=== PATIENT | female | born 1940 | race Caucasian/White ===

== ENCOUNTER 2018-05-23 02:14 | Inpatient (IN) | payer MEDICARE, OTHER ==
--- NOTE | 2018-05-23 02:26 | EDM.PDOC ---
ED HPI GENERAL MEDICAL PROBLEM - General Chief Complaint: General Stated Complaint: AMBULANCE Time Seen by Provider: 05/23/18 02:21 Source of Information: Reports: EMS - History of Present Illness INITIAL COMMENTS - FREE TEXT/NARRATIVE: EMS called to pt with weakness cough sob past few days. pt answers slowly. EMS states pt's home has wood stove and unsure if there is monoxide poisoning. spouse at scene seems ok as he was the one who called EMS. - Related Data Allergies Allergy/AdvReac Type Severity Reaction Status Date / Time No Known Allergies Allergy Verified 05/23/18 02:22 Home Meds: Home Meds Levothyroxine 125 mcg PO DAILY 12/20/15 [History] PARoxetine [Paxil] 10 mg PO DAILY 12/20/15 [History] atorvaSTATin [Lipitor] 10 mg PO DAILY 12/20/15 [History] tiZANidine HCl [Tizanidine HCl] 2 mg PO TID PRN 12/20/15 [History] Alendronate [Fosamax] 70 mg PO Q30D 04/06/18 [History] Ascorbic Acid [Vitamin C] 1 tab PO DAILY 04/06/18 [History] Aspirin 81 mg PO DAILY 04/06/18 [History] Calcium Carb & Citrate/Vit D3 [Calcium + D3 ER Tablet] 1 tab PO DAILY 04/06/18 [ History] LORazepam 1 tab PO TID PRN 04/06/18 [History] Losartan [Cozaar] 75 mg PO DAILY 04/06/18 [History] Past Medical History HEENT History: Reports: Hard of Hearing Cardiovascular History: Reports: Hypertension Musculoskeletal History: Reports: Osteoarthritis Psychiatric History: Reports: Anxiety, Depression - Past Surgical History Endocrine Surgical History: Reports: Thyroidectomy Musculoskeletal Surgical History: Reports: Other (See Below) Other Musculoskeletal Surgeries/Procedures:: L broken shoulder Social & Family History - Living Situation & Occupation Living situation: Reports: , with Spouse Occupation: Retired ED ROS GENERAL - Review of Systems Review Of Systems: ROS reveals no pertinent complaints other than HPI. ED EXAM, GENERAL - Physical Exam Exam: See Below Exam Limited By: No Limitations General Appearance: Alert, WD/WN, Lethargic, Other (answers slowly) Ears: Hearing Grossly Normal Throat/Mouth: Normal Voice, No Airway Compromise Head: Atraumatic Neck: Non-Tender, Full Range of Motion Respiratory/Chest: No Respiratory Distress, No Accessory Muscle Use, Rhonchi Cardiovascular: Regular Rate, Rhythm GI/Abdominal: Soft, Non-Tender Neurological: Alert, Normal Cognition, No Motor/Sensory Deficits Psychiatric: Flat Affect Skin Exam: Warm, Dry, Normal Color Lymphatic: No Adenopathy Course - Vital Signs Last Recorded V/S: Last Vital Signs Temp 36.8 C 05/23/18 02:16 Pulse 90 05/23/18 02:16 Resp 16 05/23/18 02:16 BP 142/82 H 05/23/18 02:16 Pulse Ox 92 L 05/23/18 02:16 - Orders/Labs/Meds Orders: Active Orders 24 hr Category Date Time Status EKG 12 Lead [EKG Documentation Completion] [RC] STAT Care 05/23/18 02:19 Active CULTURE BLOOD [BC] Stat Lab 05/23/18 02:23 Received UA RFX SRIDHAR AND CULT IF INDIC [URIN] Stat Lab 05/23/18 03:11 Ordered Sodium Chloride 0.9% [Normal Saline] 1,000 ml Med 05/23/18 03:15 Active IV ASDIRECTED cefTRIAXone [Rocephin] 1 gm Med 05/23/18 03:41 Ordered Sodium Chloride 0.9% [Normal Saline] 50 ml IV ONETIME Medication Orders Sodium Chloride (Normal Saline) 1,000 mls @ 500 mls/hr IV ASDIRECTED ABAD Last Admin: 05/23/18 03:13 Dose: 500 mls/hr Ceftriaxone Sodium 1 gm/ (Sodium Chloride) 50 mls @ 50 mls/hr IV ONETIME ONE Stop: 05/23/18 04:40 Labs: Laboratory Tests 05/23/18 05/23/18 05/23/18 Range/Units 02:23 02:23 02:23 WBC 7.1 (5.0-10.0) 10^3/uL RBC 3.85 L (4.2-5.4) 10^6/uL Hgb 11.2 L (12.0-16.0) g/dL Hct 34.0 L (37.0-47.0) % MCV 88.3 (80-100) fL MCH 29.1 (27.0-34.0) pg MCHC 32.9 L (33.0-35.0) g/dL Plt Count 203 (150-450) 10^3/uL Neut % (Auto) 82.7 H (42.2-75.2) % Lymph % (Auto) 9.1 L (20.5-50.1) % [place]ess % (Auto) 6.5 (2-8) % Eos % (Auto) 1.4 (1.0-3.0) % Baso % (Auto) 0.3 (0.0-1.0) % ABG pH (7.35-7.45) ABG pCO2 (35-45) mmHg ABG pO2 (70-100) mmHg ABG HCO3 (22-26) mmol/L ABG O2 Saturation (95-100) % ABG Base Excess ((-2)-(+3)) mmol/L Ranjan Test O2 Delivery Device Oxygen Flow Rate Sodium 128 L (135-145) mmol/L Potassium 4.1 (3.6-5.0) mmol/L Chloride 96 L (101-111) mmol/L Carbon Dioxide 24.0 (21.0-31.0) mmol/L Anion Gap 12.1 BUN 25 H (7-18) mg/dL Creatinine 1.0 (0.6-1.3) mg/dL Est Cr Clr Drug Dosing 40.68 mL/min Estimated GFR (MDRD) 54 BUN/Creatinine Ratio 25.00 Glucose 111 H (74-105) mg/dL Lactic Acid 0.7 (0.5-2.2) mmol/L Calcium 8.7 (8.4-10.2) mg/dl Total Bilirubin 0.6 (0.2-1.0) mg/dL AST 21 (10-42) IU/L ALT 18 (10-60) IU/L Alkaline Phosphatase 65 (42-121) IU/L Troponin I < 0.02 (0.00-0.02) ng/ml B-Natriuretic Peptide 48 (0-100) pg/ml Total Protein 7.8 (6.7-8.2) g/dl Albumin 3.9 (3.2-5.5) g/dl Globulin 3.9 Albumin/Globulin Ratio 1.00 / Range/Units 03:05 WBC (5.0-10.0) 10^3/uL RBC (4.2-5.4) 10^6/uL Hgb (12.0-16.0) g/dL Hct (37.0-47.0) % MCV (80-100) fL MCH (27.0-34.0) pg MCHC (33.0-35.0) g/dL Plt Count (150-450) 10^3/uL Neut % (Auto) (42.2-75.2) % Lymph % (Auto) (20.5-50.1) % Ness % (Auto) (2-8) % Eos % (Auto) (1.0-3.0) % Baso % (Auto) (0.0-1.0) % ABG pH 7.47 H (7.35-7.45) ABG pCO2 34 L (35-45) mmHg ABG pO2 78 (70-100) mmHg ABG HCO3 24.3 (22-26) mmol/L ABG O2 Saturation 96 (95-100) % ABG Base Excess 1 ((-2)-(+3)) mmol/L Ranjan Test pos O2 Delivery Device Nasal cannula Oxygen Flow Rate 2 Sodium (135-145) mmol/L Potassium (3.6-5.0) mmol/L Chloride (101-111) mmol/L Carbon Dioxide (21.0-31.0) mmol/L Anion Gap BUN (7-18) mg/dL Creatinine (0.6-1.3) mg/dL Est Cr Clr Drug Dosing mL/min Estimated GFR (MDRD) BUN/Creatinine Ratio Glucose (74-105) mg/dL Lactic Acid (0.5-2.2) mmol/L Calcium (8.4-10.2) mg/dl Total Bilirubin (0.2-1.0) mg/dL AST (10-42) IU/L ALT (10-60) IU/L Alkaline Phosphatase (42-121) IU/L Troponin I (0.00-0.02) ng/ml B-Natriuretic Peptide (0-100) pg/ml Total Protein (6.7-8.2) g/dl Albumin (3.2-5.5) g/dl Globulin Albumin/Globulin Ratio Meds: Medications Generic Name Dose Route Start Last Admin Trade Name Freq PRN Reason Stop Dose Admin Sodium Chloride 1,000 mls @ 500 mls/hr 05/23/18 03:15 05/23/18 03:13 Normal Saline IV 500 mls/hr ASDIRECTED ABAD Administration Ceftriaxone Sodium 1 gm/ 50 mls @ 50 mls/hr 05/23/18 03:41 Sodium Chloride IV 05/23/18 04:40 ONETIME ONE Discontinued Medications Generic Name Dose Route Start Last Admin Trade Name [place] PRN Reason Stop Dose Admin Ondansetron HCl 4 mg 05/23/18 03:07 05/23/18 03:13 Zofran IV 05/23/18 03:08 4 mg ONETIME ONE Administration - Re-Assessments/Exams Free Text/Narrative Re-Assessment/Exam: 05/23/18 03:[address] Sampson who kindly admitted pt. Departure - Departure Time of Disposition: 03:46 Disposition: Admitted As Inpatient 67 Condition: Fair Clinical Impression: Pneumonia, Hyponatremia syndrome, Asthenia due to disease - Discharge Information Forms: ED Department Discharge - My Orders Last 24 Hours: My Active Orders 05/23/18 02:19 EKG 12 Lead [EKG Documentation Completion] [RC] STAT 05/23/18 02:23 CULTURE BLOOD [BC] Stat 05/23/18 03:11 UA RFX SRIDHAR AND CULT IF INDIC [URIN] Stat 05/23/18 03:15 Sodium Chloride 0.9% [Normal Saline] 1,000 ml IV ASDIRECTED 05/23/18 03:41 cefTRIAXone [Rocephin] 1 gm Sodium Chloride 0.9% [Normal Saline] 50 ml IV ONETIME - Assessment/Plan Last 24 Hours: My Active Orders 05/23/18 02:19 EKG 12 Lead [EKG Documentation Completion] [RC] STAT 05/23/18 02:23 CULTURE BLOOD [BC] Stat 05/23/18 03:11 UA RFX SRIDHAR AND CULT IF INDIC [URIN] Stat 05/23/18 03:15 Sodium Chloride 0.9% [Normal Saline] 1,000 ml IV ASDIRECTED 05/23/18 03:41 cefTRIAXone [Rocephin] 1 gm Sodium Chloride 0.9% [Normal Saline] 50 ml IV ONETIME
[2018-05-23 02:52] LABS: ANION GAP 12.1; CHLORIDE,CL 96 mmol/L (101-111); SODIUM,NA 128 mmol/L (135-145)
[2018-05-23] MEDS ORDERED: Ondansetron 4 MG/2 ML SDV IV ONE (03:07)
[2018-05-23 03:12] LABS: BASE EXCESS ARTERIAL 1 mmol/L ((-2)-(+3)); BICARBONATE,ARTERIAL 24.3 mmol/L (22-26); O2 DELIVERY DEVICE NASAL CANNULA; O2 SATURATION ARTERIAL 96 % (95-100); PCO2 ARTERIAL 34 mmHg (35-45); PO2 ARTERIAL 78 mmHg (70-100)
[2018-05-23] MEDS: Sodium Chloride 0.9% 1,000 ML IV SCH ×3 (03:13→11:42)
[2018-05-23 03:21] LABS: ALLEN TEST pos; O2 FLOW RATE 2
[2018-05-23] MEDS ORDERED: cefTRIAXone 1 GM in Sodium Chloride 0.9% 50 ML IV ONE (03:41)
--- NOTE | 2018-05-23 04:32 | PCM.HP ---
H&P History of Present Illness - General Date of Service: 05/23/18 Admit Problem/Dx: Pt was admitted with : pneumonia and weakness Source of Information: Patient, EMS Notes Reviewed, Old Records History Limitations: Reports: No Limitations - History of Present Illness Initial Comments - Free Text/Narative: This is a 78 y/O F with past medical history of Hypertension, Hypothyroidism, Dyslipidemia, osteoarthritis, Anxiety disorder and Depression , presented to ED E with weakness cough sob past few days. Head CT was negative for any intracranial pathology and CXR showed Right basilar pneumonia Onset of Symptoms: Reports: Today, Gradual Associated Symptoms: Reports: Shortness of Breath, Weakness - Related Data Allergies/Adverse Reactions: Allergies Allergy/AdvReac Type Severity Reaction Status Date / Time codeine Allergy Intermediate Confusion Verified 05/23/18 04:18 Home Medications: Home Meds Levothyroxine 125 mcg PO DAILY 12/20/15 [History] PARoxetine [Paxil] 10 mg PO DAILY 12/20/15 [History] atorvaSTATin [Lipitor] 10 mg PO DAILY 12/20/15 [History] tiZANidine HCl [Tizanidine HCl] 2 mg PO TID PRN 12/20/15 [History] Alendronate [Fosamax] 70 mg PO Q30D 04/06/18 [History] Ascorbic Acid [Vitamin C] 1,000 mg PO DAILY 04/06/18 [History] Aspirin 81 mg PO DAILY 04/06/18 [History] Calcium Carb & Citrate/Vit D3 [Calcium + D3 ER Tablet] 1 tab PO DAILY 04/06/18 [ History] LORazepam 2 mg PO TID PRN 04/06/18 [History] Losartan [Cozaar] 75 mg PO DAILY 04/06/18 [History] Past Medical History HEENT History: Reports: Hard of Hearing Cardiovascular History: Reports: Hypertension Musculoskeletal History: Reports: Osteoarthritis Psychiatric History: Reports: Anxiety, Depression - Past Surgical History Endocrine Surgical History: Reports: Thyroidectomy Musculoskeletal Surgical History: Reports: Other (See Below) Other Musculoskeletal Surgeries/Procedures:: L broken shoulder Social & Family History - Tobacco Use Smoking Status *Q: Never Smoker Second Hand Smoke Exposure: Yes - Caffeine Use Caffeine Use: Reports: Coffee - Recreational Drug Use Recreational Drug Use: No - Living Situation & Occupation Living situation: Reports: , with Spouse Occupation: Retired H&P Review of Systems - Review of Systems: Review Of Systems: See Below General: Reports: Weakness, Fatigue. Denies: Fever, Chills, Weight Loss HEENT: Denies: Hearing Changes, Sinus Congestion, Sore Throat, Visual Changes Pulmonary: Reports: Shortness of Breath. Denies: Wheezing, Cough, Sputum Cardiovascular: Reports: Dyspnea on Exertion, Lightheadedness. Denies: Chest Pain, Edema Gastrointestinal: Denies: Abdominal Pain, Diarrhea, Nausea, Vomiting Genitourinary: Denies: Dysuria, Burning, Urgency, Flank Pain Musculoskeletal: Denies: Neck Pain, Shoulder Pain, Joint Pain, Muscle Pain Psychiatric: Denies: Confusion, Anxiety Neurological: Reports: Weakness. Denies: Confusion, Numbness, Tremors Hematologic/Lymphatic: Denies: Easy Bleeding, Easy Bruising Immunologic: Reports: No Symptoms Exam - Exam Exam: See Below - Vital Signs Vital Signs: Last Vital Signs Temp 36.8 C 05/23/18 02:16 Pulse 90 05/23/18 02:16 Resp 16 05/23/18 02:16 BP 142/82 H 05/23/18 02:16 Pulse Ox 92 L 05/23/18 02:16 Weight: 68.039 kg - Exam Quality Assessment: Supplemental Oxygen, DVT Prophylaxis. No: Urinary Catheter General: Alert, Oriented, Cooperative HEENT: Conjunctiva Clear, EOMI, Hearing Intact, Mucosa Moist & Oval Neck: Supple. No: Lymphadenopathy, JVD, Thyromegaly Lungs: Clear to Auscultation, Normal Respiratory Effort. No: Crackles, Wheezing Cardiovascular: Regular Rate, Regular Rhythm GI/Abdominal Exam: Normal Bowel Sounds, Soft, Non-Tender. No: Guarding, Rigid, Rebound (Female) Exam: Deferred Rectal (Female) Exam: Deferred Back Exam: Normal Inspection, Full Range of Motion Extremities: Normal Inspection, No Pedal Edema Skin: Warm, Intact Neurological: Cranial Nerves Intact, Reflexes Equal Bilateral Neuro Extensive - Mental Status: Alert, Oriented x3, Normal Mood/Affect, Normal Cognition, Memory Intact Neuro Extensive - Motor, Sensory, Reflexes: CN II-XII Intact Psychiatric: Alert, Normal Affect, Normal Mood - Patient Data Lab Results Last 24 hrs: Laboratory Results - last 24 hr 05/23/18 05/23/18 05/23/18 Range/Units 02:23 02:23 02:23 WBC 7.1 (5.0-10.0) 10^3/uL RBC 3.85 L (4.2-5.4) 10^6/uL Hgb 11.2 L (12.0-16.0) g/dL Hct 34.0 L (37.0-47.0) % MCV 88.3 (80-100) fL MCH 29.1 (27.0-34.0) pg MCHC 32.9 L (33.0-35.0) g/dL Plt Count 203 (150-450) 10^3/uL Neut % (Auto) 82.7 H (42.2-75.2) % Lymph % (Auto) 9.1 L (20.5-50.1) % [place] % (Auto) 6.5 (2-8) % Eos % (Auto) 1.4 (1.0-3.0) % Baso % (Auto) 0.3 (0.0-1.0) % ABG pH (7.35-7.45) ABG pCO2 (35-45) mmHg ABG pO2 (70-100) mmHg ABG HCO3 (22-26) mmol/L ABG O2 Saturation (95-100) % ABG Base Excess ((-2)-(+3)) mmol/L Ranjan Test O2 Delivery Device Oxygen Flow Rate Sodium 128 L (135-145) mmol/L Potassium 4.1 (3.6-5.0) mmol/L Chloride 96 L (101-111) mmol/L Carbon Dioxide 24.0 (21.0-31.0) mmol/L Anion Gap 12.1 BUN 25 H (7-18) mg/dL Creatinine 1.0 (0.6-1.3) mg/dL Est Cr Clr Drug Dosing 40.68 mL/min Estimated GFR (MDRD) 54 BUN/Creatinine Ratio 25.00 Glucose 111 H (74-105) mg/dL Lactic Acid 0.7 (0.5-2.2) mmol/L Calcium 8.7 (8.4-10.2) mg/dl Total Bilirubin 0.6 (0.2-1.0) mg/dL AST 21 (10-42) IU/L ALT 18 (10-60) IU/L Alkaline Phosphatase 65 (42-121) IU/L Troponin I < 0.02 (0.00-0.02) ng/ml B-Natriuretic Peptide 48 (0-100) pg/ml Total Protein 7.8 (6.7-8.2) g/dl Albumin 3.9 (3.2-5.5) g/dl Globulin 3.9 Albumin/Globulin Ratio 1.00 /18/ Range/Units 03:05 WBC (5.0-10.0) 10^3/uL RBC (4.2-5.4) 10^6/uL Hgb (12.0-16.0) g/dL Hct (37.0-47.0) % MCV (80-100) fL MCH (27.0-34.0) pg MCHC (33.0-35.0) g/dL Plt Count (150-450) 10^3/uL Neut % (Auto) (42.2-75.2) % Lymph % (Auto) (20.5-50.1) % [place] % (Auto) (2-8) % Eos % (Auto) (1.0-3.0) % Baso % (Auto) (0.0-1.0) % ABG pH 7.47 H (7.35-7.45) ABG pCO2 34 L (35-45) mmHg ABG pO2 78 (70-100) mmHg ABG HCO3 24.3 (22-26) mmol/L ABG O2 Saturation 96 (95-100) % ABG Base Excess 1 ((-2)-(+3)) mmol/L Ranjan Test pos O2 Delivery Device Nasal cannula Oxygen Flow Rate 2 Sodium (135-145) mmol/L Potassium (3.6-5.0) mmol/L Chloride (101-111) mmol/L Carbon Dioxide (21.0-31.0) mmol/L Anion Gap BUN (7-18) mg/dL Creatinine (0.6-1.3) mg/dL Est Cr Clr Drug Dosing mL/min Estimated GFR (MDRD) BUN/Creatinine Ratio Glucose (74-105) mg/dL Lactic Acid (0.5-2.2) mmol/L Calcium (8.4-10.2) mg/dl Total Bilirubin (0.2-1.0) mg/dL AST (10-42) IU/L ALT (10-60) IU/L Alkaline Phosphatase (42-121) IU/L Troponin I (0.00-0.02) ng/ml B-Natriuretic Peptide (0-100) pg/ml Total Protein (6.7-8.2) g/dl Albumin (3.2-5.5) g/dl Globulin Albumin/Globulin Ratio Result Diagrams: 05/23/18 02:23 05/23/18 02:23 - Problem List (1) Weakness generalized SNOMED Code(s): 28134478 ICD Code: R53.1 - WEAKNESS Status: Acute Current Visit: Yes (2) Hyponatremia SNOMED Code(s): 72695633 ICD Code: E87.1 - HYPO-OSMOLALITY AND HYPONATREMIA Status: Acute Current Visit: Yes (3) Pneumonia SNOMED Code(s): 565659036 ICD Code: J18.9 - PNEUMONIA, UNSPECIFIED ORGANISM Status: Acute Current Visit: Yes Problem List Initiated/Reviewed/Updated: Yes Orders Last 24hrs: Active Orders 24 hr Category Date Time Status CULTURE BLOOD [BC] Stat Lab 05/23/18 02:23 Received UA RFX SRIDHAR AND CULT IF INDIC [URIN] Stat Lab 05/23/18 03:11 Ordered Sodium Chloride 0.9% [Normal Saline] 1,000 ml Med 05/23/18 03:15 Active IV ASDIRECTED cefTRIAXone [Rocephin] 1 gm Med 05/23/18 03:41 Active Sodium Chloride 0.9% [Normal Saline] 50 ml IV ONETIME Medication Orders Sodium Chloride (Normal Saline) 1,000 mls @ 500 mls/hr IV ASDIRECTED ABAD Last Admin: 05/23/18 03:13 Dose: 500 mls/hr Ceftriaxone Sodium 1 gm/ (Sodium Chloride) 50 mls @ 50 mls/hr IV ONETIME ONE Stop: 05/23/18 04:40 Last Admin: 05/23/18 03:48 Dose: 50 mls/hr Assessment/Plan Comment:: This is a 78 y/O F admitted with weakness and right sided Pneumonia Impression and Plan: 1. Right sided Pneumonia: This is likely community acquired pmeumonia, no recent hospitalization -Will start her on Zosyn 3.375 mg q8 hrs -Will follow blood culture and U/C ( done in ER) -follow 02 sat and wean off qxygen as tolerated 2. Hypertension: BP acceptable and will continue losartan at 75 mg daily 3. Hypothyroidism: Continue Levothyroxine 4. Dyslipidemia: Continue lipitor 10 mg daily 5. Osteoarthritis: she is on alendronate and oral calcium 6. Weakness: This is likely from pneumonia and Hyponatremia -Will continue IVF ( NS at 50 ml/hr) 7. Hyponatremia: This is likely from Lung pathology ( pneumonia) and also from paxil -Will continue IVF , NS at 50 ml/hr -Recheck sodium again in AM 8. DVT prophylaxis: continue Heparin Code Status: discussed with pt and she wants to be DNR/DNI
[2018-05-23] MEDS ORDERED: Docusate Sodium 100 MG Cap PO PRN (04:52)
[2018-05-23] MEDS ORDERED: Acetaminophen 325 MG Tab PO PRN (04:52)
[2018-05-23] MEDS ORDERED: TIZANIDINE HCL 2 MG PO PRN (04:55)
[2018-05-23] MEDS ORDERED: Piperacillin/Tazobactam 3.375 GM in Sodium Chloride 0.9% 100 ML IV ONE (05:00)
[2018-05-23] MEDS: Heparin Sodium 5,000 Units/ML Vial SUBCUT SCH ×3 (05:31→21:51)
[2018-05-23] MEDS: Levothyroxine 125 MCG Tab PO SCH (08:49)
[2018-05-23] MEDS: PARoxetine 20 MG Tab PO SCH (08:49)
[2018-05-23] MEDS: Losartan 50 MG Tab PO SCH (08:53)
[2018-05-23] MEDS: Ascorbic Acid 500 MG Tab PO SCH (08:54)
[2018-05-23] MEDS: Calcium Carbonate/Vitamin D3 1250 MG-200 Unit Tab PO SCH (08:54)
[2018-05-23] MEDS: atorvaSTATin 10 MG Tab PO SCH (08:54)
[2018-05-23] MEDS: Aspirin 81 MG Tab.Chew PO SCH (08:55)
[2018-05-23] MEDS ORDERED: Piperacillin/Tazobactam 3.375 GM in Sodium Chloride 0.9% 100 ML IV SCH (11:00)
[2018-05-23] MEDS ORDERED: Azithromycin 250 MG Tab PO ONE (11:00)
[2018-05-23] MEDS: cefTRIAXone 1 GM in Sodium Chloride 0.9% 50 ML IV SCH (11:48)
[2018-05-23] MEDS ORDERED: Azithromycin 500 MG in Sodium Chloride 0.9% 250 ML IV SCH (14:00)
[2018-05-23] MEDS ORDERED: Polyethylene Glycol 3350 Powder 17 GM Packet PO PRN (15:50)
[2018-05-23] MEDS ORDERED: Aluminum Hydroxide/Magnesium Hydroxide/Simethicone Susp 30 ML Cup PO PRN (20:12)
[2018-05-24] MEDS: Heparin Sodium 5,000 Units/ML Vial SUBCUT SCH ×3 (07:00→20:25)
[2018-05-24 07:06] LABS: ANION GAP 14.1; CHLORIDE,CL 98 mmol/L (101-111); SODIUM,NA 131 mmol/L (135-145)
[2018-05-24] MEDS: Levothyroxine 125 MCG Tab PO SCH (08:20)
[2018-05-24] MEDS: Ascorbic Acid 500 MG Tab PO SCH (08:21)
[2018-05-24] MEDS: PARoxetine 20 MG Tab PO SCH (08:21)
[2018-05-24] MEDS: Losartan 50 MG Tab PO SCH (08:22)
[2018-05-24] MEDS: Calcium Carbonate/Vitamin D3 1250 MG-200 Unit Tab PO SCH (08:22)
[2018-05-24] MEDS: Aspirin 81 MG Tab.Chew PO SCH (08:22)
[2018-05-24] MEDS: atorvaSTATin 10 MG Tab PO SCH (08:23)
[2018-05-24] MEDS: Azithromycin 250 MG Tab PO SCH (08:23)
[2018-05-24] MEDS: Sodium Chloride 0.9% 1,000 ML IV SCH (10:07)
--- NOTE | 2018-05-24 11:28 | PCM.PN ---
- General Info Date of Service: 05/24/18 Admission Dx/Problem (Free Text): Pt was admitted with : pneumonia and weakness Subjective Update: I saw and examined the patient at the bedside this morning. She feels better, SOB and cough is improving - Review of Systems General: Reports: No Symptoms HEENT: Reports: No Symptoms Pulmonary: Reports: Shortness of Breath, Cough Cardiovascular: Reports: No Symptoms Gastrointestinal: Reports: No Symptoms Genitourinary: Reports: No Symptoms Musculoskeletal: Reports: No Symptoms - Patient Data Vitals - Most Recent: Last Vital Signs Temp 36.7 C 05/24/18 08:00 Pulse 73 05/24/18 08:00 Resp 20 05/24/18 08:00 BP 142/54 H 05/24/18 08:22 Pulse Ox 98 05/24/18 08:00 Weight - Most Recent: 68.039 kg I&O - Last 24 Hours: Intake & Output 05/23/18 05/24/18 05/24/18 22:59 06:59 14:59 Intake Total 715 500 Output Total 900 250 Balance -185 250 Lab Results Last 24 Hours: Laboratory Results - last 24 hr 05/23/18 05/24/18 05/24/18 Range/Units 16:28 06:13 06:13 WBC 8.2 (5.0-10.0) 10^3/uL RBC 3.61 L (4.2-5.4) 10^6/uL Hgb 10.6 L (12.0-16.0) g/dL Hct 32.6 L (37.0-47.0) % MCV 90.3 (80-100) fL MCH 29.4 (27.0-34.0) pg MCHC 32.5 L (33.0-35.0) g/dL Plt Count 185 (150-450) 10^3/uL Neut % (Auto) 82.2 H (42.2-75.2) % Lymph % (Auto) 10.1 L (20.5-50.1) % [place] % (Auto) 7.3 (2-8) % Eos % (Auto) 0.2 L (1.0-3.0) % Baso % (Auto) 0.2 (0.0-1.0) % Sodium 131 L (135-145) mmol/L Potassium 4.1 (3.6-5.0) mmol/L Chloride 98 L (101-111) mmol/L Carbon Dioxide 23.0 (21.0-31.0) mmol/L Anion Gap 14.1 BUN 16 (7-18) mg/dL Creatinine 0.9 (0.6-1.3) mg/dL Est Cr Clr Drug Dosing 37.60 mL/min Estimated GFR (MDRD) > 60 Glucose 105 (74-105) mg/dL Calcium 8.1 L (8.4-10.2) mg/dl Urine Color Yellow (YELLOW) Urine Appearance Clear (CLEAR) Urine pH 6.0 (5.0-9.0) Ur Specific [place] 1.010 (1.005-1.030) Urine Protein Negative (NEGATIVE) Urine Glucose (UA) Negative (NEGATIVE) Urine Ketones Negative (NEGATIVE) Urine Occult Blood Trace-intact H (NEGATIVE) Urine Nitrite Negative (NEGATIVE) Urine Bilirubin Negative (NEGATIVE) Urine Urobilinogen 0.2 (0.2-1.0) mg/dL Ur Leukocyte Esterase Negative (NEGATIVE) Urine RBC 0-5 /HPF Urine WBC 0-5 (0-5/HPF) /HPF Ur Epithelial Cells Few /HPF Urine Bacteria Rare (0-FEW/HPF) /HPF Mina Results Last 24 Hours: Microbiology 05/23/18 02:23 Aerobic Blood Culture - Preliminary Blood NO GROWTH AFTER 1 DAY Anaerobic Blood Culture - Preliminary NO GROWTH AFTER 1 DAY Med Orders - Current: Current Medications Acetaminophen (Tylenol) 650 mg PO Q4H PRN PRN Reason: Pain (mild 1-3 )/fever Last Admin: 05/23/18 21:51 Dose: 650 mg Al Hydroxide/Mg Hydroxide (Mag-Al Plus) 10 ml PO Q8H PRN PRN Reason: Gas Ascorbic Acid (Vitamin C) 1,000 mg PO DAILY [facility] Last Admin: 05/24/18 08:21 Dose: 1,000 mg Aspirin (Aspirin) 81 mg PO DAILY [facility] Last Admin: 05/24/18 08:22 Dose: 81 mg Atorvastatin Calcium (Lipitor) 10 mg PO DAILY [facility] Last Admin: 05/24/18 08:23 Dose: 10 mg Azithromycin (Zithromax) 250 mg PO DAILY [facility] Stop: 05/27/18 09:01 Last Admin: 05/24/18 08:23 Dose: 250 mg Calcium Carbonate (Calcium Carbonate/Vitamin D 1250 Mg-200 Unit) 1 tab PO DAILY [facility] Last Admin: 05/24/18 08:22 Dose: 1 tab Docusate Sodium (Colace) 100 mg PO DAILY PRN PRN Reason: Constipation Last Admin: 05/23/18 10:38 Dose: 100 mg Heparin Sodium (Porcine) (Heparin Sodium) 5,000 units SUBCUT Q8H [facility] Last Admin: 05/24/18 07:00 Dose: 5,000 units Sodium Chloride (Normal Saline) 1,000 mls @ 500 mls/hr IV ASDIRECTED [facility] Last Infusion: 05/23/18 11:42 Dose: Infused Sodium Chloride (Normal Saline) 1,000 mls @ 50 mls/hr IV ASDIRECTED [facility] Last Admin: 05/24/18 10:07 Dose: 50 mls/hr Ceftriaxone Sodium 1 gm/ (Sodium Chloride) 50 mls @ 100 mls/hr IV Q24H [facility] Last Infusion: 05/23/18 13:13 Dose: Infused Levothyroxine Sodium (Levothyroxine) 125 mcg PO DAILY [facility] Last Admin: 05/24/18 08:20 Dose: 125 mcg Lorazepam (Ativan) 2 mg PO TID PRN PRN Reason: Anxiety Losartan Potassium (Cozaar) 75 mg PO DAILY [facility] Last Admin: 05/24/18 08:22 Dose: 75 mg Paroxetine HCl (Paxil) 10 mg PO DAILY [facility] Last Admin: 05/24/18 08:21 Dose: 10 mg Tizanidine Hcl [ Tizanidine Hcl] 2 Mg Pt's Own Med 0 each PO TID PRN PRN Reason: Muscle Spasm Polyethylene Glycol (Miralax) 17 gm PO DAILY PRN PRN Reason: Constipation Last Admin: 05/23/18 16:45 Dose: 17 gm Discontinued Medications Azithromycin (Zithromax) 500 mg PO ONETIME ONE Stop: 05/23/18 11:01 Last Admin: 05/23/18 11:43 Dose: 500 mg Ceftriaxone Sodium 1 gm/ (Sodium Chloride) 50 mls @ 50 mls/hr IV ONETIME ONE Stop: 05/23/18 04:40 Last Admin: 05/23/18 03:48 Dose: 50 mls/hr Piperacillin Sod/Tazobactam (Sod 3.375 gm/ Sodium Chloride) 100 mls @ 200 mls/ hr IV ONETIME ONE Stop: 05/23/18 05:29 Last Admin: 05/23/18 05:29 Dose: 200 mls/hr Azithromycin 500 mg/ Sodium (Chloride) 250 mls @ 250 mls/hr IV Q24H ABAD Ondansetron HCl (Zofran) 4 mg IV ONETIME ONE Stop: 05/23/18 03:08 Last Admin: 05/23/18 03:13 Dose: 4 mg - Exam General: Alert, Oriented HEENT: Pupils Equal Neck: Supple Lungs: Clear to Auscultation Cardiovascular: Regular Rate, Regular Rhythm GI/Abdominal Exam: Normal Bowel Sounds, Soft, Non-Tender Extremities: Normal Inspection, Non-Tender - Problem List Review Problem List Initiated/Reviewed/Updated: Yes - My Orders Last 24 Hours: My Active Orders 05/23/18 11:16 OT Evaluation and Treatment [CONS] Routine PT Evaluation and Treatment [CONS] Routine 05/23/18 12:00 cefTRIAXone [Rocephin] 1 gm Sodium Chloride 0.9% [Normal Saline] 50 ml IV Q24H 05/23/18 15:50 Polyethylene Glycol 3350 [MiraLAX] 17 gm PO DAILY PRN 05/23/18 15:51 Flutter Valve Therapy [RT Chest Physiotherapy] [RC] ASDIRECTED 05/23/18 20:12 Alum Hydrox/Mag Hydrox/Simeth [Mag-Al Plus] 10 ml PO Q8H PRN 05/24/18 09:00 Azithromycin [Zithromax] 250 mg PO DAILY - Plan Plan:: This is a 78 y/O F admitted with weakness and right sided Pneumonia Impression and Plan: 1. Right sided Pneumonia: This is likely community acquired pmeumonia, no recent hospitalization -Ceftriaxone + Azithromycin -wean off qxygen as tolerated 2. Hypertension: BP acceptable and will continue home meds 3. Hypothyroidism: Continue Levothyroxine 4. Dyslipidemia: Continue lipitor 10 mg daily 5. Osteoarthritis: she is on alendronate and oral calcium 6. Weakness: This is likely from pneumonia and Hyponatremia -Will continue IVF ( NS at 50 ml/hr) 7. Hyponatremia: improving -This is likely from Lung pathology (pneumonia) and also from paxil -Will continue IVF, NS at 50 ml/hr -Recheck sodium again in AM 8. DVT prophylaxis: continue Heparin Code Status: discussed with pt and she wants to be DNR/DNI
[2018-05-24] MEDS: cefTRIAXone 1 GM in Sodium Chloride 0.9% 50 ML IV SCH (12:18)
[2018-05-24] MEDS: LORazepam 1 MG Tab PO PRN (22:39)
[2018-05-25] MEDS: Heparin Sodium 5,000 Units/ML Vial SUBCUT SCH ×3 (05:58→20:42)
[2018-05-25] MEDS: Sodium Chloride 0.9% 1,000 ML IV SCH (06:41)
[2018-05-25] MEDS: Calcium Carbonate/Vitamin D3 1250 MG-200 Unit Tab PO SCH (08:41)
[2018-05-25] MEDS: Levothyroxine 125 MCG Tab PO SCH (08:41)
[2018-05-25] MEDS: atorvaSTATin 10 MG Tab PO SCH (08:41)
[2018-05-25] MEDS: Azithromycin 250 MG Tab PO SCH (08:42)
[2018-05-25] MEDS: Aspirin 81 MG Tab.Chew PO SCH (08:42)
[2018-05-25] MEDS: PARoxetine 20 MG Tab PO SCH (08:42)
[2018-05-25] MEDS: Losartan 50 MG Tab PO SCH (08:42)
[2018-05-25] MEDS: Ascorbic Acid 500 MG Tab PO SCH (08:42)
--- NOTE | 2018-05-25 10:05 | PCM.PN ---
- General Info Date of Service: 05/25/18 Admission Dx/Problem (Free Text): Pt was admitted with : pneumonia and weakness Subjective Update: I saw and examined the patient at the bedside this morning. She feels better, SOB and cough has improved remarkably. Working with PT/OT - Review of Systems General: Denies: Fever HEENT: Reports: No Symptoms Pulmonary: Reports: Shortness of Breath, Cough Cardiovascular: Reports: No Symptoms Gastrointestinal: Reports: No Symptoms Genitourinary: Reports: No Symptoms Musculoskeletal: Reports: No Symptoms - Patient Data Vitals - Most Recent: Last Vital Signs Temp 36.5 C 05/25/18 07:59 Pulse 68 05/25/18 07:59 Resp 20 05/25/18 07:59 BP 173/62 H 05/25/18 08:42 Pulse Ox 96 05/25/18 07:59 Weight - Most Recent: 68.039 kg I&O - Last 24 Hours: Intake & Output 05/24/18 05/25/18 05/25/18 22:59 06:59 14:59 Intake Total 125 675 Output Total 200 950 Balance -75 -275 M[place] Results Last 24 Hours: Microbiology 05/23/18 02:23 Aerobic Blood Culture - Preliminary Blood NO GROWTH AFTER 2 DAYS Anaerobic Blood Culture - Preliminary NO GROWTH AFTER 2 DAYS Med Orders - Current: Current Medications Acetaminophen (Tylenol) 650 mg PO Q4H PRN PRN Reason: Pain (mild 1-3 )/fever Last Admin: 05/23/18 21:51 Dose: 650 mg Al Hydroxide/Mg Hydroxide (Mag-Al Plus) 10 ml PO Q8H PRN PRN Reason: Gas Last Admin: 05/24/18 20:24 Dose: 10 ml Ascorbic Acid (Vitamin C) 1,000 mg PO DAILY [facility] Last Admin: 05/25/18 08:42 Dose: 1,000 mg Aspirin (Aspirin) 81 mg PO DAILY [facility] Last Admin: 05/25/18 08:42 Dose: 81 mg Atorvastatin Calcium (Lipitor) 10 mg PO DAILY [facility] Last Admin: 05/25/18 08:41 Dose: 10 mg Azithromycin (Zithromax) 250 mg PO DAILY [facility] Stop: 05/27/18 09:01 Last Admin: 05/25/18 08:42 Dose: 250 mg Calcium Carbonate (Calcium Carbonate/Vitamin D 1250 Mg-200 Unit) 1 tab PO DAILY [facility] Last Admin: 05/25/18 08:41 Dose: 1 tab Docusate Sodium (Colace) 100 mg PO DAILY PRN PRN Reason: Constipation Last Admin: 05/23/18 10:38 Dose: 100 mg Heparin Sodium (Porcine) (Heparin Sodium) 5,000 units SUBCUT Q8H [facility] Last Admin: 05/25/18 05:58 Dose: 5,000 units Sodium Chloride (Normal Saline) 1,000 mls @ 50 mls/hr IV ASDIRECTED [facility] Last Admin: 05/25/18 06:41 Dose: 50 mls/hr Ceftriaxone Sodium 1 gm/ (Sodium Chloride) 50 mls @ 100 mls/hr IV Q24H [facility] Last Admin: 05/24/18 12:18 Dose: 100 mls/hr Levothyroxine Sodium (Levothyroxine) 125 mcg PO DAILY [facility] Last Admin: 05/25/18 08:41 Dose: 125 mcg Lorazepam (Ativan) 2 mg PO TID PRN PRN Reason: Anxiety Last Admin: 05/24/18 22:39 Dose: 2 mg Losartan Potassium (Cozaar) 75 mg PO DAILY [facility] Last Admin: 05/25/18 08:42 Dose: 75 mg Paroxetine HCl (Paxil) 10 mg PO DAILY [facility] Last Admin: 05/25/18 08:42 Dose: 10 mg Tizanidine Hcl [ Tizanidine Hcl] 2 Mg Pt's Own Med 0 each PO TID PRN PRN Reason: Muscle Spasm Polyethylene Glycol (Miralax) 17 gm PO DAILY PRN PRN Reason: Constipation Last Admin: 05/23/18 16:45 Dose: 17 gm Discontinued Medications Azithromycin (Zithromax) 500 mg PO ONETIME ONE Stop: 05/23/18 11:01 Last Admin: 05/23/18 11:43 Dose: 500 mg Sodium Chloride (Normal Saline) 1,000 mls @ 500 mls/hr IV ASDIRECTED [facility] Last Infusion: 05/23/18 11:42 Dose: Infused Ceftriaxone Sodium 1 gm/ (Sodium Chloride) 50 mls @ 50 mls/hr IV ONETIME ONE Stop: 05/23/18 04:40 Last Admin: 05/23/18 03:48 Dose: 50 mls/hr Piperacillin Sod/Tazobactam (Sod 3.375 gm/ Sodium Chloride) 100 mls @ 200 mls/ hr IV ONETIME ONE Stop: 05/23/18 05:29 Last Admin: 05/23/18 05:29 Dose: 200 mls/hr Azithromycin 500 mg/ Sodium (Chloride) 250 mls @ 250 mls/hr IV Q24H [facility] Ondansetron HCl (Zofran) 4 mg IV ONETIME ONE Stop: 05/23/18 03:08 Last Admin: 05/23/18 03:13 Dose: 4 mg - Exam General: Alert, Oriented HEENT: Pupils Equal Neck: Supple Lungs: Clear to Auscultation Cardiovascular: Regular Rate, Regular Rhythm GI/Abdominal Exam: Normal Bowel Sounds, Soft - Problem List Review Problem List Initiated/Reviewed/Updated: Yes - Plan Plan:: This is a 78 y/O F admitted with weakness and right sided Pneumonia Impression and Plan: 1. Right sided Pneumonia: This is likely community acquired pmeumonia, improved symptoms -Ceftriaxone + Azithromycin -can discontinue IV fluids 2. Hypertension: BP acceptable and will continue home meds 3. Hypothyroidism: Continue Levothyroxine 4. Dyslipidemia: Continue lipitor 10 mg daily 5. Osteoarthritis: she is on alendronate and oral calcium 6. Weakness: This is likely from pneumonia and Hyponatremia -improved remarkably -continue PT/OT 7. Hyponatremia: improving -This is likely from Lung pathology (pneumonia) and also from paxil -Can discontinue IV fluids 8. DVT prophylaxis: continue Heparin Code Status: DNR/DNI
[2018-05-25] MEDS: cefTRIAXone 1 GM in Sodium Chloride 0.9% 50 ML IV SCH (13:19)
[2018-05-25] MEDS ORDERED: Sodium Chloride 0.9% 10 ML Syringe FLUSH PRN (13:56)
[2018-05-25] MEDS: LORazepam 1 MG Tab PO PRN (20:44)
[2018-05-26] MEDS: Heparin Sodium 5,000 Units/ML Vial SUBCUT SCH (05:50)
[2018-05-26] MEDS: Azithromycin 250 MG Tab PO SCH (09:03)
[2018-05-26] MEDS: PARoxetine 20 MG Tab PO SCH (09:03)
[2018-05-26] MEDS: Losartan 50 MG Tab PO SCH (09:05)
[2018-05-26] MEDS: Levothyroxine 125 MCG Tab PO SCH (09:05)
[2018-05-26] MEDS: Aspirin 81 MG Tab.Chew PO SCH (09:07)
[2018-05-26] MEDS: Ascorbic Acid 500 MG Tab PO SCH (09:07)
[2018-05-26] MEDS: Calcium Carbonate/Vitamin D3 1250 MG-200 Unit Tab PO SCH (09:07)
[2018-05-26] MEDS: atorvaSTATin 10 MG Tab PO SCH (09:08)
[2018-05-26] MEDS: LORazepam 1 MG Tab PO PRN (09:15)
--- NOTE | 2018-05-26 10:24 | PCM.DCSUM1 ---
Discharge Summary - Hospital Course Free Text/Narrative:: This is a 78 y/O F admitted with weakness and found to have CAP. CXR showed Right sided Pneumonia. She was managed with IV abx with significant improvement in her symptoms. She is being discharge home on PO abx. She will follow up with her PCP in 5 days. Diagnosis: Stroke: No - Discharge Data Discharge Date: 05/26/18 Discharge Disposition: Home, Self-Care 01 Condition: Stable - Patient Summary/Data Consults: Consultations 05/23/18 11:16 OT Evaluation and Treatment [CONS] Routine PT Evaluation and Treatment [CONS] Routine - Patient Instructions Diet: Heart Healthy Diet Activity: As Tolerated Showering/Bathing: May Shower Notify Provider of: Fever, Increased Pain, Swelling and Redness, Nausea and/or Vomiting - Discharge Plan *PRESCRIPTION DRUG MONITORING PROGRAM REVIEWED*: Not Applicable Prescriptions/Med Rec: levoFLOXacin [Levaquin] 750 mg PO Q48H #7 tab Home Medications: Home Meds Levothyroxine 125 mcg PO DAILY 12/20/15 [History] PARoxetine [Paxil] 10 mg PO DAILY 12/20/15 [History] atorvaSTATin [Lipitor] 10 mg PO DAILY 12/20/15 [History] tiZANidine HCl [Tizanidine HCl] 2 mg PO TID PRN 12/20/15 [History] Alendronate [Fosamax] 70 mg PO Q30D 04/06/18 [History] Ascorbic Acid [Vitamin C] 1,000 mg PO DAILY 04/06/18 [History] Aspirin 81 mg PO DAILY 04/06/18 [History] Calcium Carb & Citrate/Vit D3 [Calcium + D3 ER Tablet] 1 tab PO DAILY 04/06/18 [ History] LORazepam 2 mg PO TID PRN 04/06/18 [History] Losartan [Cozaar] 75 mg PO DAILY 04/06/18 [History] levoFLOXacin [Levaquin] 750 mg PO Q48H #7 tab 05/26/18 [Rx] Oxygen Therapy Mode: Room Air Forms: ED Department Discharge Referrals: PCP,Unobtain [Primary Care Provider] - - Discharge Summary/Plan Comment DC Time >30 min.: Yes - General Info Admission Dx/Problem (Free Text: Pt was admitted with : pneumonia and weakness Subjective Update: I saw and examined the patient at the bedside this morning. No acute overnight event. She feels better, SOB and cough has improved remarkably. Functional Status: Reports: Pain Controlled - Review of Systems General: Reports: No Symptoms HEENT: Reports: No Symptoms Pulmonary: Reports: No Symptoms Cardiovascular: Reports: No Symptoms Gastrointestinal: Reports: No Symptoms Genitourinary: Reports: No Symptoms Musculoskeletal: Reports: No Symptoms Skin: Reports: No Symptoms Neurological: Reports: No Symptoms Psychiatric: Reports: No Symptoms - Patient Data Vitals - Most Recent: Last Vital Signs Temp 97.5 F 05/26/18 07:44 Pulse 72 05/26/18 07:44 Resp 20 05/26/18 07:44 BP 149/91 H 05/26/18 09:05 Pulse Ox 95 05/26/18 07:44 Weight - Most Recent: 150 lb I&O - Last 24 hours: Intake & Output 05/25/18 05/26/18 05/26/18 22:59 06:59 14:59 Intake Total 100 Output Total 500 600 Balance -500 -500 SRIDHAR Results - Last 24 hrs: Microbiology 05/23/18 02:23 Aerobic Blood Culture - Preliminary Blood NO GROWTH AFTER 3 DAYS Anaerobic Blood Culture - Preliminary NO GROWTH AFTER 3 DAYS Med Orders - Current: Current Medications Acetaminophen (Tylenol) 650 mg PO Q4H PRN PRN Reason: Pain (mild 1-3 )/fever Last Admin: 05/23/18 21:51 Dose: 650 mg Al Hydroxide/Mg Hydroxide (Mag-Al Plus) 10 ml PO Q8H PRN PRN Reason: Gas Last Admin: 05/24/18 20:24 Dose: 10 ml Ascorbic Acid (Vitamin C) 1,000 mg PO DAILY [facility] Last Admin: 05/26/18 09:07 Dose: 1,000 mg Aspirin (Aspirin) 81 mg PO DAILY [facility] Last Admin: 05/26/18 09:07 Dose: 81 mg Atorvastatin Calcium (Lipitor) 10 mg PO DAILY [facility] Last Admin: 05/26/18 09:08 Dose: 10 mg Azithromycin (Zithromax) 250 mg PO DAILY [facility] Stop: 05/27/18 09:01 Last Admin: 05/26/18 09:03 Dose: 250 mg Calcium Carbonate (Calcium Carbonate/Vitamin D 1250 Mg-200 Unit) 1 tab PO DAILY [facility] Last Admin: 05/26/18 09:07 Dose: 1 tab Docusate Sodium (Colace) 100 mg PO DAILY PRN PRN Reason: Constipation Last Admin: 05/23/18 10:38 Dose: 100 mg Heparin Sodium (Porcine) (Heparin Sodium) 5,000 units SUBCUT Q8H [facility] Last Admin: 05/26/18 05:50 Dose: 5,000 units Ceftriaxone Sodium 1 gm/ (Sodium Chloride) 50 mls @ 100 mls/hr IV Q24H [facility] Last Admin: 05/25/18 13:19 Dose: 100 mls/hr Levothyroxine Sodium (Levothyroxine) 125 mcg PO DAILY [facility] Last Admin: 05/26/18 09:05 Dose: 125 mcg Lorazepam (Ativan) 2 mg PO TID PRN PRN Reason: Anxiety Last Admin: 05/26/18 09:15 Dose: 1 mg Losartan Potassium (Cozaar) 75 mg PO DAILY [facility] Last Admin: 05/26/18 09:05 Dose: 75 mg Paroxetine HCl (Paxil) 10 mg PO DAILY [facility] Last Admin: 05/26/18 09:03 Dose: 10 mg Tizanidine Hcl [ Tizanidine Hcl] 2 Mg Pt's Own Med 0 each PO TID PRN PRN Reason: Muscle Spasm Polyethylene Glycol (Miralax) 17 gm PO DAILY PRN PRN Reason: Constipation Last Admin: 05/23/18 16:45 Dose: 17 gm Sodium Chloride (Saline Flush) 10 ml FLUSH ASDIRECTED PRN PRN Reason: Keep Vein Open Last Admin: 05/25/18 21:52 Dose: 10 ml Discontinued Medications Azithromycin (Zithromax) 500 mg PO ONETIME ONE Stop: 05/23/18 11:01 Last Admin: 05/23/18 11:43 Dose: 500 mg Sodium Chloride (Normal Saline) 1,000 mls @ 500 mls/hr IV ASDIRECTED [facility] Last Infusion: 05/23/18 11:42 Dose: Infused Ceftriaxone Sodium 1 gm/ (Sodium Chloride) 50 mls @ 50 mls/hr IV ONETIME ONE Stop: 05/23/18 04:40 Last Admin: 05/23/18 03:48 Dose: 50 mls/hr Sodium Chloride (Normal Saline) 1,000 mls @ 50 mls/hr IV ASDIRECTED [facility] Last Admin: 05/25/18 06:41 Dose: 50 mls/hr Piperacillin Sod/Tazobactam (Sod 3.375 gm/ Sodium Chloride) 100 mls @ 200 mls/ hr IV ONETIME ONE Stop: 05/23/18 05:29 Last Admin: 05/23/18 05:29 Dose: 200 mls/hr Azithromycin 500 mg/ Sodium (Chloride) 250 mls @ 250 mls/hr IV Q24H [facility] Ondansetron HCl (Zofran) 4 mg IV ONETIME ONE Stop: 05/23/18 03:08 Last Admin: 05/23/18 03:13 Dose: 4 mg - Exam General: Reports: Alert, Oriented HEENT: Reports: Pupils Equal, Pupils Reactive, EOMI, Mucous Membr. Moist/[place] Neck: Reports: Supple Lungs: Reports: Clear to Auscultation, Normal Respiratory Effort Cardiovascular: Reports: Regular Rate, Regular Rhythm GI/Abdominal Exam: Normal Bowel Sounds, Soft, Non-Tender, No Organomegaly, No Distention, No Abnormal Bruit, No Mass, Pelvis Stable (Female) Exam: Normal External Exam, Normal Speculum Exam, Normal Bimanual Exam Rectal (Female) Exam: Normal Exam, Normal Rectal Tone Back Exam: Reports: Normal Inspection, Full Range of Motion Extremities: Normal Inspection, Normal Range of Motion, Non-Tender, No Pedal Edema, Normal Capillary Refill Skin: Reports: Warm, Dry, Intact Wound/Incisions: Reports: Healing Well Neurological: Reports: No New Focal Deficit Psy/Mental Status: Reports: Alert, Normal Affect, Normal Mood
== END 2018-05-26 11:30 | disposition home or self-care (01) | DRG 194 ==
LOC: DL.ED 02:14 → DL.MS 04:01 → UNDOADMIN 04:01 → DL.MS 04:52
PROVIDERS: ADMIT Internal Medicine Nephrology; ATTEND Hospitalist
PROC: F08Z4ZZ Home Management Treatment (ICD-10-PCS; principal; 2018-05-23)
DX: J18.9 Pneumonia, unspecified organism (principal); E87.1 Hypo-osmolality and hyponatremia; Z66 Do not resuscitate; I10 Essential (primary) hypertension; E03.9 Hypothyroidism, unspecified; E78.5 Hyperlipidemia, unspecified; M19.90 Unspecified osteoarthritis, unspecified site; F41.9 Anxiety disorder, unspecified; F32.9 Major depressive disorder, single episode, unspecified; H91.90 Unspecified hearing loss, unspecified ear; Z79.82 Long term (current) use of aspirin; Z79.899 Other long term (current) drug therapy; Z88.5 Allergy status to narcotic agent
CPT/HCPCS: 36415; 36600; 70450; 71045; 80048; 80053; 81001; 82803; 83605; 83880; 84484; 85025; 87040; 93005; 94667; 96361; 96374; 96375; 97116-GP; 97162-GP; 97165-GO; 97530-GO; 99285-25; A9270-GY; J0696; J1644; J2405; J2543; J7030; J7050